=== PATIENT | female | born 1955 ===

== ENCOUNTER 2018-08-04 09:02 | Emergency (ER) | payer BC ==
[2018-08-04] MEDS ORDERED: ACETAMINOPHEN 650MG/20.3ML CUP NGT (09:21)
[2018-08-04] MEDS ORDERED: MIDAZOLAM (DRIP) 50 mg/50 mL 50 ML IV (09:21)
[2018-08-04] MEDS: ETOMIDATE 20 MG INJ IV (09:30)
[2018-08-04] MEDS ORDERED: VANCOMYCIN 1 GM (PMX) 250 ML IVPB (09:30)
[2018-08-04] MEDS: SUCCINYLCHOLINE CHLORIDE 100 MG/5 ML SYG IV (09:31)
[2018-08-04] MEDS: SODIUM CHLORIDE 0.9% 1L BAG IV* (09:34)
[2018-08-04 09:36] LABS: ABNORMAL IP MESSAGE 1; HEMATOCRIT 24.6 % (37.0-47.0); HEMOGLOBIN 8.1 g/dl (12.0-16.0); MEAN CORPUSCULAR HEMOGLOBIN 30.7 pg (29.0-33.0); MEAN CORPUSCULAR HGB CONC 32.9 g/dl (32.0-37.0); MEAN CORPUSCULAR VOLUME 93.2 fl (82.0-101.0); MEAN PLATELET VOLUME 10.8 fl (7.4-10.4); PLATELET COUNT 73 10^3/UL (140-415); RED BLOOD COUNT 2.64 10^6/ul (4.20-5.40); RED CELL DISTRIBUTION WIDTH 18.3 % (11.5-14.5)
[2018-08-04 09:36] LABS: WHITE BLOOD COUNT 17.8 10^3/ul (4.8-10.8)
[2018-08-04] MEDS: CEFEPIME 2GM/50 ML (PMX) 50 ML IVPB (09:37)
[2018-08-04 09:39] LABS: ADD MAN DIFF? YES; POSITIVE DIFF @See below
[2018-08-04 09:41] LABS: INR 1.38; PROTIME 17.1 Sec (11.9-14.9); PT RATIO 1.3
[2018-08-04 09:42] LABS: PARTIAL THROMBOPLASTIN TIME 61.4 Sec (23.0-35.0)
[2018-08-04 09:44] LABS: ALANINE AMINOTRANSFERASE 26 IU/L (13-69); ALBUMIN/GLOBULIN RATIO 0.88; ALKALINE PHOSPHATASE 120 IU/L (42-121); AMYLASE 238 U/L (11-123); ANION GAP 21 (5-13); ASPARTATE AMINO TRANSFERASE 209 IU/L (15-46); BLOOD UREA NITROGEN 26 mg/dl (7-20); CALCIUM 9.4 mg/dl (8.4-10.2); CARBON DIOXIDE 14 mmol/L (21-31); CHLORIDE 98 mmol/L (97-110); CREATININE 1.32 mg/dl (0.44-1.00); Estimated GFR 41 mL/min (>60); GLUCOSE 105 mg/dl (70-220); LIPASE 395 U/L (23-300); POTASSIUM 4.7 mmol/L (3.5-5.1); SODIUM 133 mmol/L (135-144); TOTAL PROTEIN 6.4 g/dl (6.1-8.1)
[2018-08-04 09:45] LABS: AADO2 Arterial 369.5 mmHg (7.0-24.0); Allen Test ACCEPTAB; Arterial Base Excess -14.2 mmol/L (-3.0-3); Arterial Blood Gas Oxygen Sat 99.5 mmHG (95.0-98.0); Arterial COHb 0.8 % (0.0-3.0); Arterial Fraction of Oxyhgb 97.9 % (93.0-99.0); Arterial HCO3 10.6 mmol/L (22.0-26.0); Arterial MetHb 0.8 % (0.0-1.5); Arterial pCO2 22.7 mmhg (35-45); MODE VENT - AC; Site Right Radial
[2018-08-04] MEDS ORDERED: MIDAZOLAM 1 MG/ML 2 ML INJ IV (10:00)
[2018-08-04] MEDS: NORepinephrine 8MG/250 ML (PMX 250 ML IV (10:02)
[2018-08-04 10:03] LABS: TROPONIN-I 0.393 ng/ml (0.000-0.120)
[2018-08-04] MEDS ORDERED: ACETAMINOPHEN 650 MG SUPP PR (10:30)
[2018-08-04 11:13] LABS: ANISOCYTOSIS 1+ (0-0); BAND NEUTROPHILS #M 3.7 10^3/ul (0.0-0.6); BAND NEUTROPHILS % (M) 21 % (0-4); BURR CELLS 1+ (0-0); GIANT THROMBO% (M) 4 % (0-0); LYMPHOCYTES #M 0.5 10^3/ul (0.8-2.9); LYMPHOCYTES % (M) 3 % (15-51); MICROCYTOSIS 1+ (0-0); MONOCYTE #M 0.3 10^3/ul (0.3-0.9); MONOCYTES % (M) 2 % (0-11); PLASMA CELLS #M 0.1 10^3/ul (0.0-0.0); PLASMAC%(M) 1 % (0); PLATELET ESTIMATE DECREASED; POIKILOCYTOSIS 1+ (0-0); POLYCHROMASIA 1+ (0-0); REACTIVE LYMPHOCYTES #M 0.3 10^3/ul (0.0-0.0); REACTIVE LYMPHOCYTES% (M) 2 % (0-0); SEG NEUT #M 13.3 10^3/ul (1.6-7.5); SEGMENTED NEUTROPHILS (M) % 71 % (39-77); SMUDGE%M 1 % (0-0)
== END 2018-08-04 14:30 | disposition expired ==
LOC: E/R 09:02
DX: A41.9 Sepsis, unspecified organism (principal); R65.21 Severe sepsis with septic shock; I46.9 Cardiac arrest, cause unspecified; R40.2142 Coma scale, eyes open, spontaneous, at arrival to emergency department; R40.2222 Coma scale, best verbal response, incomprehensible words, at arrival to emergency department; R40.2342 Coma scale, best motor response, flexion withdrawal, at arrival to emergency department; I10 Essential (primary) hypertension
CPT/HCPCS: 31500; 36415; 36600; 71045; 76937; 80053; 82150; 82803; 82962; 83605; 83690; 84484; 85025; 85610; 85730; 87040-91; 92950; 93005; 94002; 96374; 99291-25